=== PATIENT | female | born 1930 | race Caucasian/White ===

== ENCOUNTER 2016-06-21 00:13 | Inpatient (IN) ==
[2016-06-21] MEDS ORDERED: ONDANSETRON 4 MG/2 ML VIAL ONE (00:14)
[2016-06-21] MEDS ORDERED: ONDANSETRON 4 MG/2 ML VIAL IV ONE ×2 (00:22→00:25)
--- NOTE | 2016-06-21 00:55 | Emergency Department Note ---
General Adult HPI - General Chief complaint: Extremity Injury, Lower Stated complaint: hip pain Time Seen by Provider: 06/21/16 00:50 Source: patient Mode of arrival: EMS Limitations: no limitations - History of Present Illness HPI Narrative: 85-year-old female who fell off the toilet landed on her left hip. Complaining of pain to the area of injury involved. No head or neck painPain to the left hip she is on coumadin for a fib. Has myasthia gravis and cannot not use muscle relaxants. - Related Data Home Medications Medication Instructions Recorded Confirmed Estradiol [Estrace] 0.5 mg PO DAILY 11/08/14 05/01/16 Folic Acid/Mv,Fe,Min [One Daily 1 each PO DAILY 11/08/14 05/01/16 For Women Tablet] Omeprazole [Prilosec] 20 mg PO BID 11/08/14 05/01/16 azaTHIOprine [Imuran] 50 mg PO BID 11/08/14 05/01/16 Warfarin [Coumadin] 2 mg PO . TIN-LS-QP-SAT 03/15/16 05/01/16 Warfarin [Coumadin] 3 mg PO . M-W-F 03/15/16 05/01/16 Previous Rx's Medication Instructions Recorded Acetaminophen [Tylenol] 650 mg PO Q4-6HP PRN #0 tablet 12/11/15 Aspirin [Ecotrin] 325 mg PO DAILY tab.ec 12/11/15 Bisacodyl [Dulcolax] 10 mg OR Q2-3DAYS PRN #0 supp.rect 12/11/15 Docusate Sodium [Colace] 100 mg PO BID capsule 12/11/15 Furosemide [Lasix] 20 mg PO DAILY tablet 12/11/15 Gabapentin [Neurontin] 300 mg PO TID capsule 12/11/15 HYDROcodone/APAP 5/325MG [[place] 1 tab PO Q4HP PRN #30 tablet 12/11/15 5/325Mg] Heparin 5,000 unit SQ Q12 vial 12/11/15 Metoprolol Succinate [Toprol Xl] 25 mg PO BID tab.xl.24h 12/11/15 Potassium Chloride [Klor-Con] 40 meq PO DAILYP PRN #0 packet 12/11/15 Sennosides/Docusate Sodium [Senna 1 tab PO HS tablet 12/11/15 Plus Tablet] azaTHIOprine [Imuran] 150 mg PO DAILY@1200 tablet 12/11/15 predniSONE [Prednisone] 10 mg PO QAMCC tablet 12/11/15 traZODone HCL [Desyrel] 50 mg PO HSP PRN #0 tablet 12/11/15 Ciprofloxacin [Cipro] 500 mg PO BID #15 tablet 05/01/16 Amoxicillin/Potassium Clav 875 mg PO Q12H #20 tablet 05/28/16 [Augmentin] Ciprofloxacin HCl [Cipro] 500 mg PO BID #20 tablet 05/28/16 Allergies Allergy/AdvReac Type Severity Reaction Status Date / Time hydrochlorothiazide Allergy Mild Rash Verified 05/28/16 12:14 muscle relaxers Allergy Severe Weakness Uncoded 12/02/15 13:04 Review of Systems All systems ED: reviewed and negative except as stated. Musculoskeletal: Reports: as per HPI, other (left hp pain) Past Medical History - Past Medical History Medical history: Reports: atrial fibrillation, CHF, coronary artery disease, GI bleed, hypertension, other (myasthenia gravis, squamous cell carcinoma skin) Surgical history ED: Reports: appendectomy, cancer surgery, cataract, cholecystectomy, hysterectomy, knee replacement Family history: Reports: non-contributory - Social History smoking status: Never smoker Alcohol use: Reports: None Drug use: Reports: none Physical Exam - General Limitations: no limitations - Head Head exam: atraumatic - Eye Eye exam: Present: normal appearance - ENT ENT exam: normal exam - Neck Neck exam: Present: normal inspection, full ROM - Chest Chest inspection: Present: normal inspection - Respiratory Respiratory exam: Present: normal lung sounds bilaterally. Absent: respiratory distress - Cardiovascular Cardiovascular exam: Present: regular rate, normal rhythm - Abdominal Exam Abdominal exam: Present: soft. Absent: distention, tenderness - Expanded Lower Extremity Exam Hip/Pelvis exam: Present: tenderness, deformity Knee exam: Present: normal inspection Lower leg exam: Present: normal inspection Ankle exam: Present: normal inspection - Neurological Exam Neurological exam: Present: alert, oriented X3, CN II-XII intact - Psychiatric Psychiatric exam: Present: normal affect, normal mood Course Vital Signs Temperature 97.7 F 06/21/16 00:14 Pulse Rate 114 H 06/21/16 00:14 Respiratory Rate 19 06/21/16 00:14 Blood Pressure 127/70 06/21/16 00:14 Pulse Oximetry (%) 96 06/21/16 00:14 Temperature 97.7 F 06/21/16 00:14 Pulse Rate 114 H 06/21/16 00:14 Respiratory Rate 19 06/21/16 00:14 Blood Pressure 127/70 06/21/16 00:14 Pulse Oximetry (%) 96 06/21/16 00:14 Medical Decision Making - MDM Narrative Medical decision making narrative: x rays show left hip intratrocanter fracture. ua reveal a uti Hb 9.2 patient started on macrobid. inr 2.[address] Smith consulted pt to be admitted to hospitalist. Dr Loco to admitt. contacted. - Lab Data Result diagrams: 06/21/16 01:04 06/21/16 01:04 Lab Results 06/21/16 06/21/16 Range/Units 01:04 01:11 WBC 5.2 (4.5-11.0) K/mcL RBC 2.36 L (4.00-5.20) M/mcL Hgb 9.2 L (12.0-15.0) g/dL Hct 27.0 L (36.0-48.0) % MCV 114.3 H (80.0-100.0) fL MCH 39.1 H (26.0-34.0) pg MCHC 34.2 (31.0-36.0) g/dL RDW 22.8 H (11.5-14.5) % Plt Count 252 (140-440) K/mcL MPV 7.7 (7.4-10.4) fL Gran % 55.3 (38.0-78.0) % Lymph % (Auto) 38.1 (15.5-49.0) % Colbert % (Auto) 4.9 (1.0-9.0) % Eos % (Auto) 1.4 (0.0-7.0) % Baso % (Auto) 0.3 (0.0-2.0) % Gran # 2.8 (1.8-8.0) K/mcL Lymph # 2.0 (1.5-4.8) K/mcL Colbert # 0.3 (0.1-0.9) K/mcL Eos # 0.1 (0.0-0.7) K/mcL Baso # 0 (0.0-0.3) K/mcL Urine Color Yellow Urine Appearance Hazy Urine pH 5.0 (5.0-9.0) Ur Specific [place] 1.016 (1.000-1.035) Urine Protein Neg (NEG) mg/dL Urine Glucose (UA) Negative (NEG) mg/dL Urine Ketones Neg (NEG) mg/dL Urine Occult Blood 0.2 A (<0.03) mg/dL Urine Nitrate Neg (NEG) Urine Bilirubin Neg (NEG) mg/dL Urine Urobilinogen Neg (NEG) mg/dL Ur Leukocyte Esterase 250 A (NEG) /uL Urine RBC 7 H (0-1) /hpf Urine WBC 157 H (0-4) /hpf Ur Squamous Epith Cells < 1 (0-4) /hpf Ur Transition Epith Cell < 1 (0-2) /hpf Amorphous Crystals Few A (0) /hpf Urine Bacteria Few A (0) /hpf Hyaline Casts 4 H (0-2) /lpf Urine Mucus Few (0) /hpf Ur Culture Indicated? Yes Disposition Clinical Impression: UTI (urinary tract infection) Fracture of left hip Qualifiers: Encounter type: initial encounter Fracture type: closed Qualified Code(s): S72.002A - Fracture of unspecified part of neck of left femur, initial encounter for closed fracture Disposition: Xfer As Inpt ([facility]) Condition: Undetermined Referrals: Carlos Thompson MD [Primary Care Provider] -
[2016-06-21] MEDS: HYDROmorphone 2 MG/ML SYRINGE IV PRN ×8 (01:00→22:21)
[2016-06-21 01:37] LABS: Basophils # (Auto) 0 K/mcL (0.0-0.3); Basophils % (Auto) 0.3 % (0.0-2.0); Eosinophils # (Auto) 0.1 K/mcL (0.0-0.7); Eosinophils % (Auto) 1.4 % (0.0-7.0); Granulocytes % (Auto) 55.3 % (38.0-78.0); Lymphocytes % (Auto) 38.1 % (15.5-49.0); Mean Cell Volume 114.3 fL (80.0-100.0); Mean Corpuscular HGB Conc 34.2 g/dL (31.0-36.0); Mean Corpuscular Hemoglobin 39.1 pg (26.0-34.0); Monocytes # (Auto) 0.3 K/mcL (0.1-0.9); Monocytes % (Auto) 4.9 % (1.0-9.0); Platelet Count 252 K/mcL (140-440); RBC 2.36 M/mcL (4.00-5.20); Red Cell Distribution Width 22.8 % (11.5-14.5)
[2016-06-21] MEDS ORDERED: PROMETHAZINE 25 MG/ML VIAL IV ONE (01:37)
[2016-06-21 01:43] LABS: Appearance,Urine HAZY; Bacteria,Urine FEW /hpf (0); Bilirubin,Urine NEG (NEG); Color,Urine YELLOW; Glucose,Urine (UA) NEGATIVE (NEG); Leukocyte Esterase,Urine 250 /uL (NEG); Mucus,Urine FEW /hpf (0); Nitrate,Urine NEG (NEG); Protein,Urine NEG (NEG); Specific Gravity,Urine 1.016 (1.000-1.035); Urine Amorphous Crystals FEW /hpf (0); Urine Blood 0.2 mg/dL (<0.03); Urine Hyaline Cast 4 /lpf (0-2); Urine RBC 7 /hpf (0-1); Urine Squamous Epithelial Cell < 1 /hpf (0-4); Urine Transitional Epi Cells < 1 /hpf (0-2); Urine WBC 157 /hpf (0-4); Urobilinogen,Urine NEG (NEG)
[2016-06-21 01:58] LABS: ALT/SGPT 34 U/l (0-40); Albumin 3.9 gm/dL (3.2-5.2); Albumin/Globulin Ratio 1.8 (1.0-2.3); Alkaline Phosphatase 61 U/L (39-117); Blood Urea Nitrogen 27 mg/dl (8-23)
[2016-06-21] MEDS ORDERED: NITROFURANTOIN SR 100 MG CAPSULE PO ONE (02:12)
[2016-06-21] MEDS ORDERED: PHYTONADIONE 5 MG TABLET PO ONE ×2 (02:12→11:20)
[2016-06-21] MEDS ORDERED: HYDROmorphone 2 MG/ML SYRINGE IV PRN ×2 (02:22→22:52)
[2016-06-21] MEDS ORDERED: HYDROmorphone 2 MG/ML SYRINGE ONE ×7 (02:56→23:59)
[2016-06-21] MEDS ORDERED: cefTRIAXone 1 GM in DEXTROSE 5% IN WATER 50 ML IV SCH (06:00)
[2016-06-21] MEDS ORDERED: ONDANSETRON 4 MG/2 ML VIAL IV PRN (06:07)
[2016-06-21] MEDS ORDERED: IPRATROPIUM/ALBUTEROL 3 ML AMPUL.NEB NEB PRN (06:07)
[2016-06-21] MEDS ORDERED: PROMETHAZINE 25 MG/ML VIAL IV PRN (06:07)
[2016-06-21] MEDS ORDERED: NALOXONE HCL 0.4 MG/ML VIAL IV PRN (06:07)
[2016-06-21] MEDS ORDERED: FLEETS ADULT ENEMA PR PRN (06:07)
[2016-06-21] MEDS ORDERED: cefTRIAXone 1 GM VIAL ONE (06:27)
--- NOTE | 2016-06-21 06:52 | Internal Med History&Physical ---
Medical - H&P: HPI Patient information: Note initiated : 06/21/16 at 6:48 am Service Date, if different from initiated Date: [] Patient: Juan Diego Luna 85 y/o F admitted on 06/21/16 for hip pain. Chief Complaint: [] History of present illness: Ms. Luna is a 85 year old female with h/o afib, myasthenia gravis, on chr medications, presented to the ER with a fall The patient was on the toilet seat, when while getting up apparently her leg slipped/ or gave away and she fell down hurting her hip. The patient has been having pain in the left hip region, severe, worse with activity, better with rest. She was seen in the ER and an X ray showed a fracture of the left femur neck. She was admitted to the hospital for further management. Dr Robles was called in by the ER. The patient denies any trauma to the head, LOC, palpitations, presyncope or dizziness. The patient has h/o CHF with preserved LVEF, Myasthenia gravis, Afib on coumadin , ? CAD, She denies h/o MS, CVA, TIA, CKD or DM. Patient has poor ambulation but her MET score is around 2-3, she is able to take care of herself. She denies any active chest pain, shortness of breat. The patient notes she has chr intermittent UTi, but was not very clear if she was having these symptoms at this time, her UA done in the ER does howevere suggest an UTI. - Constitutional Constitutional: Absent: fever(s), headache(s) - EENT Eyes: Absent: blurry vision, change in vision Nose, mouth and throat: Absent: abnormal hearing, bleeding gums - Cardiovascular Cardiovascular: Absent: chest pain, claudication, orthopnea, palpatations, syncope - Respiratory Respiratory: Absent: cough, dyspnea on exertion, wheezing, chest congestion, excessive phlegm production - Gastrointestinal Gastrointestinal: Absent: abdominal pain, nausea, vomiting - Genitourinary Genitourinary: Absent: hematuria, urinary frequency, urinary hesitancy - Musculoskeletal Musculoskeletal: Present: limited range of motion (left hip.) - Integumentary Integumentary: Absent: wounds, jaundice - Neurological Neurological: Absent: headache(s), syncope, vertigo - Psychiatric Psychiatric: Absent: anxiety, confusion - Endocrine Endocrine: Absent: polydipsia, polyphagia, polyuria - Hematologic/Lymphatic Hematologic/Lymphatic: Present: easy bleeding, easy bruising - Allergic/Immunologic Allergic/Immunologic: Absent: tongue swelling, wheezing, lip swelling Medical - H&P: PMH Medical history: Medical History Fracture of left hip (Acute) UTI (urinary tract infection) (Acute) Abnormal bruising (Acute) Acute bronchitis (Acute) Acute diarrhea (Acute) Ankle sprain and strain (Acute) Atypical chest pain (Acute) Chest pain (Acute) Dehydration (Acute) Dysuria-frequency syndrome (Acute) Fracture of rib (Acute) Heart failure with acute decompensation, type unknown (Acute) Intractable pain (Acute) Lower GI bleeding (Acute) Nausea (Acute) Right femoral fracture (Acute) Right knee sprain (Acute) Urinary tract infection (Acute) Urinary tract infection (Acute) Surgical history: h/op TKA< cataract sx, appendectomy, chloecystectomy, Medical - H&P: Meds Home Medications Medication Instructions Recorded Confirmed Type Estradiol [Estrace] 0.5 mg PO DAILY 11/08/14 05/01/16 History Folic Acid/Mv,Fe,Min [One Daily 1 each PO DAILY 11/08/14 05/01/16 History For Women Tablet] Omeprazole [Prilosec] 20 mg PO BID 11/08/14 05/01/16 History azaTHIOprine [Imuran] 50 mg PO BID 11/08/14 05/01/16 History Warfarin [Coumadin] 2 mg PO . TFG-SL-AA-SAT 03/15/16 05/01/16 History Warfarin [Coumadin] 3 mg PO . -W-03/15/16 05/01/16 History Allergies Allergy/AdvReac Type Severity Reaction Status Date / Time hydrochlorothiazide Allergy Mild Rash Verified 05/28/16 12:14 muscle relaxers Allergy Severe Weakness Uncoded 12/02/15 13:04 Medical - H&P: Exam - Constitutional Vitals: Temp Pulse Resp BP Pulse Ox 97.3 F L 87 18 112/64 95 06/21/16 02:54 06/21/16 02:54 06/21/16 02:54 06/21/16 02:54 06/21/16 02:54 General appearance: cooperative, mild distress - Head Head exam: Present: atraumatic, normal inspection, normocephalic - Eye Eye exam: Absent: periorbital swelling, periorbital tenderness, scleral icterus - ENT ENT exam: Present: mucous membranes dry - Neck Neck exam: Present: normal inspection - Respiratory Respiratory exam: Present: normal respiratory exam. Absent: accessory muscle use, respiratory distress, rhonchi, stridor, wheezes - Cardiovascular Cardiovascular exam: Present: normal rate and rhythm, +S1, +S2, systolic murmur (aortic region) - GI/Abdominal GI/Abdominal exam: Present: normal bowel sounds, soft. Absent: rebound, tenderness - Extremities Exam Extremities exam: Present: Foot pink and warm, neurovascular intact. Absent: pedal edema - Neurological Exam Neurological exam: Present: alert, CN II-XII intact, oriented X3. Absent: motor sensory deficit - Psychiatric Psychiatric exam: Absent: agitated, anxious - Skin Skin exam: Present: warm. Absent: rash, urticaria Medical - H&P: Reslt - Labs CBC & Chem 7: 06/21/16 01:04 06/21/16 01:04 - EKG Data -: EKG Reviewed by Myself EKG shows normal: sinus rhythm (lad, lafb.) - EKG Data When compared to previous EKG: there is no significant change - Impressions Echo done in 2016 shows mild , Moderate LVH with normal LVEF, Mild LA Chest X ray reviewed, no infiltrate. Medical - H&P: A/P (1) Pre-op evaluation Current visit: Yes Status: Acute (2) Hypertension Current visit: Yes Status: Acute (3) Fracture of left hip Current visit: Yes Status: Acute (4) UTI (urinary tract infection) Current visit: Yes Status: Acute - Narrative A/P Narrative: The patient presents with left femur fracture after a mechnical fall- Fracture management as per Ortho. UTI- IV rocephin for now, follow urine culture Pre Op eval- RCRI score of 1, and poor functional status, makes her a moderate risk individual, she is already on beta blockers. Will resume Home meds once reconciled Myasthenia gravis- Resume home dose of steroids, and azathioprine, once confirmed, patient should avoid NM blocking agents in the OR Afib- On coumadin, metoprolol, INR therapeutic, patient received DVT - SCD Diet NPO Code Full Medical - H&P: Qual - Stroke Symptom Onset Unknown: No - VTE Deep Vein Thrombosis/Pulmonary Embolism Present on Admission: No
--- NOTE | 2016-06-21 07:45 | XRay Report ---
HISTORY: Reason for Exam:injury/pain after a fall FINDINGS: There is an acute transverse fracture left femoral neck. The shaft is displaced superiorly. The head is normally aligned with the acetabulum. There is underlying osteoporosis. Disc space narrowing and spur formation are present at L4-5 and L5-S1. IMPRESSION: Fractured left femoral neck Interpreted and Authenticated by: Hemant Clay 06/21/16
--- NOTE | 2016-06-21 07:47 | XRay Report ---
HISTORY: Reason for Exam: Preop to repair a broken hip FINDINGS: A band of discoid atelectasis is present laterally at the left lung base. The lungs are otherwise clear. The heart size and pulmonary vasculature are normal. The mediastinum and burt are normal. There is a dorsal column electrical stimulator wire in the midthoracic spinal canal. The discoid atelectasis is new since 05/28/16. IMPRESSION: Discoid atelectasis in the left lower lobe Interpreted and Authenticated by: Hemant Clay 06/21/16
[2016-06-21] MEDS ORDERED: NITROFURANTOIN SR 100 MG CAPSULE PO SCH (09:00)
[2016-06-21] MEDS ORDERED: NITROGLYCERIN 0.4 MG TAB.SUBL SL PRN (14:44)
[2016-06-21] MEDS ORDERED: NITROGLYCERIN 0.4 MG TAB.SUBL SL ONE (14:46)
[2016-06-21] MEDS: 0.9 % SODIUM CHLORIDE 10 ML SYRINGE IV SCH ×2 (14:59→22:09)
--- NOTE | 2016-06-21 16:24 | Event Note ---
Was notified of pt having jaw pain and chest pain, given her age and planed sx in AM, ordered ekg, troponin and echo pt notes she still has right jaw pain, her chest pain on the left side was fleeting in nature and she has left back pain. Will give her metoprolol and isosorbide as her home medication. Echo result pending first set of troponin is neg, I doubt if this is cardiac chest pain. Most likely non cardiac in origin, as the back region is tender to palpation. jaw pain seems unrelated to chest.
[2016-06-21] MEDS: predniSONE 10 MG TABLET PO SCH (16:55)
[2016-06-21] MEDS: ISOSORBIDE MONONITRATE 30 MG TAB.XL.24H PO SCH (16:56)
[2016-06-21] MEDS: PANTOPRAZOLE 40 MG TABLET PO SCH (16:56)
[2016-06-21] MEDS: METOPROLOL TARTRATE 25 MG TABLET PO SCH (16:56)
[2016-06-21] MEDS ORDERED: POTASSIUM CHLORIDE 20 MEQ PACKET PO PRN (16:56)
[2016-06-21] MEDS ORDERED: SENNOSIDES 1 TABLET PO SCH (21:00)
[2016-06-21] MEDS ORDERED: traZODone HCL 50 MG TABLET PO SCH (21:00)
[2016-06-21] MEDS ORDERED: SENNOSIDES/DOCUSATE SODIUM 1 TAB TABLET PO SCH (21:00)
[2016-06-21] MEDS: GABAPENTIN 300 MG CAPSULE PO SCH (21:19)
[2016-06-21] MEDS: SUCRALFATE 1 GM TABLET PO SCH (21:19)
[2016-06-21] MEDS: azaTHIOprine 50 MG TABLET PO SCH (22:46)
[2016-06-22] MEDS ORDERED: HYDROmorphone 2 MG/ML SYRINGE ONE ×2 (03:08→06:18)
[2016-06-22] MEDS: METOPROLOL TARTRATE 25 MG TABLET PO SCH ×3 (03:12→21:07)
[2016-06-22] MEDS: 0.9 % SODIUM CHLORIDE 10 ML SYRINGE IV SCH ×3 (06:11→22:38)
[2016-06-22] MEDS: SUCRALFATE 1 GM TABLET PO SCH ×4 (07:11→21:08)
[2016-06-22] MEDS ORDERED: ceFAZolin 1 GM VIAL IV ONE (08:18)
[2016-06-22] MEDS ORDERED: ceFAZolin 1 GM VIAL ONE (08:21)
[2016-06-22] MEDS ORDERED: fentaNYL 100 MCG/2 ML VIAL IV ONE (08:30)
[2016-06-22] MEDS ORDERED: LIDOCAINE HCL/PF 100 MG/5 ML SYRINGE IV ONE (08:30)
[2016-06-22] MEDS ORDERED: ONDANSETRON 4 MG/2 ML VIAL IV ONE (08:30)
[2016-06-22] MEDS ORDERED: GLYCOPYRROLATE 0.2 MG/ML VIAL IV ONE (08:30)
[2016-06-22] MEDS ORDERED: MIDAZOLAM 5 MG/5 ML VIAL IV ONE (08:30)
[2016-06-22] MEDS ORDERED: PROPOFOL 200 MG/20 ML VIAL IV ONE (08:30)
[2016-06-22] MEDS ORDERED: TRANEXAMIC ACID 1,000 MG/10 ML VIAL IV ONE ×2 (08:30→09:52)
[2016-06-22] MEDS ORDERED: KETAMINE 100 MG/ML ML IV ONE (08:30)
[2016-06-22] MEDS ORDERED: amLODIPine 10 MG TABLET PO SCH (09:00)
[2016-06-22] MEDS ORDERED: cefTRIAXone 1 GM in DEXTROSE 5% IN WATER 50 ML IV SCH (09:00)
[2016-06-22] MEDS ORDERED: ISOSORBIDE MONONITRATE 30 MG TAB.XL.24H PO SCH (09:00)
[2016-06-22] MEDS ORDERED: FOLIC ACID 1 MG TABLET PO SCH (09:00)
[2016-06-22] MEDS ORDERED: FUROSEMIDE 20 MG TABLET PO SCH (09:00)
--- NOTE | 2016-06-22 09:24 | XRay Report ---
HISTORY: Reason for Exam:shortness of breath FINDINGS: There are bands of discoid atelectasis in both lung bases. The pain in the right lower lobe is new since prior study done earlier in the same date. The left lower lobe atelectasis has remained stable. Lung volumes are smaller now than they were previously. The heart size and pulmonary vasculature are normal. There is no pleural effusion. IMPRESSION: Bands of discoid atelectasis in both lower lobes Interpreted and Authenticated by: Hemant Clay 06/22/16
[2016-06-22] MEDS ORDERED: HYDROmorphone 2 MG/ML SYRINGE IV PRN (09:46)
[2016-06-22] MEDS ORDERED: IPRATROPIUM/ALBUTEROL 3 ML AMPUL.NEB NEB PRN ×2 (09:46→14:50)
[2016-06-22] MEDS ORDERED: MEPERIDINE 25 MG/ML SYRINGE IV PRN (09:46)
[2016-06-22] MEDS ORDERED: PROMETHAZINE 25 MG/ML VIAL IV PRN ×2 (09:46→14:50)
[2016-06-22] MEDS ORDERED: BENZOCAINE/MENTHOL 1 LOZENGE PO PRN ×3 (09:46→14:50)
[2016-06-22] MEDS ORDERED: fentaNYL 100 MCG/2 ML VIAL IV PRN (09:46)
[2016-06-22] MEDS ORDERED: LABETALOL 5 MG/ML ML IV PRN (09:46)
--- NOTE | 2016-06-22 09:51 | Brief Operative Note ---
Date of procedure: 06/22/16 Pre-op diagnosis: Left hip femoral neck fracture Post-op diagnosis: same Procedure: Open treatment left femoral neck fracture with prosthetic hemiarthroplasty Grafts/Implants: Yes (Depuy 4 cemented summit, 44 unipolar head, 0 neck) Anesthesia: GETA Findings: above Complications: none Surgeon: Jacques Johnson Stratigrapher: Anibal Pardo Estimated blood loss (cc): 150 Specimens Removed/Pathology: none sent Condition: stable Disposition: PACU
[2016-06-22] MEDS ORDERED: KETOROLAC 15 MG/ML VIAL IV PRN ×2 (09:52→14:50)
[2016-06-22] MEDS ORDERED: MAGNESIUM HYDROXIDE 30 ML ORAL.SUSP PO PRN ×2 (09:52→14:50)
[2016-06-22] MEDS ORDERED: FLEETS ADULT ENEMA PR PRN ×3 (09:52→14:50)
[2016-06-22] MEDS ORDERED: oxyCODONE/APAP 5/325MG TABLET PO PRN (09:52)
[2016-06-22] MEDS ORDERED: BISACODYL 10 MG SUPP.RECT PR PRN ×2 (09:52→14:50)
[2016-06-22] MEDS ORDERED: POLYETHYLENE GLYCOL 3350 17 GM PACKET PO PRN ×2 (09:52→14:50)
[2016-06-22] MEDS ORDERED: ceFAZolin 1 GM VIAL IV SCH (10:00)
[2016-06-22] MEDS ORDERED: LACTATED RINGERS 1,000 ML IV SCH (10:00)
[2016-06-22] MEDS ORDERED: ACETAMINOPHEN 1,000 MG/100 ML BOTTLE IV SCH (10:00)
[2016-06-22] MEDS ORDERED: 0.9 % SODIUM CHLORIDE 1,000 ML IV SCH (10:00)
--- NOTE | 2016-06-22 11:56 | Echocardiogram Report ---
ECHOCARDIOGRAM: 2-D and M-mode echocardiography with cardiac Doppler and color flow imaging were performed with a [employer] A[employer]io MX. INDICATION: Chest pain. The exam was conducted in the supine only positioning (hip fracture). Overall size of the RA, RV, LV, and aortic root appeared normal. LV wall thickness appeared mildly increased. Systolic performance appeared vigorous. Estimated ejection fraction is 70%. The LA appeared borderline enlarged. The aortic valve appeared moderately to heavily calcified. Valve opening appeared mildly reduced. Maximal instantaneous aortic outflow systolic gradient as obtained from the apex and as calculated by the modified Bernoulli equation was 21 mmHg, usually corresponding to very mild aortic stenosis. No more than trivial aortic regurgitation was noted. The mitral and tricuspid valves appear unremarkable. Heavy mitral annular calcification was present. Doppler interrogation of LV inflow disclosed prolonged early diastolic deceleration time and \\"A\\" wave dominance indicating delayed LV relaxation. No more than trivial mitral regurgitation was demonstrated. Pulmonary venous interrogation disclosed slight \\"S\\" wave dominance. The pulmonic valve was not visualized. Pulmonary artery acceleration time appeared normal. There was no evidence for pulmonic stenosis or pulmonic regurgitation. There was no evidence for tricuspid regurgitation. No intracardiac shunting was appreciated. There was no evidence of pericardial effusion. The IVC was of normal diameter and showed normal respiratory variation. Hepatic venous interrogation disclosed normal \\"S\\" wave dominance. Sinus rhythm, rate 88, was present. CONCLUSIONS: Technically limited study due to supine only positioning. Aortic stenosis, probably mild. Mild concentric LVH with vigorous systolic performance. Heavy mitral annular calcification. Borderline LA enlargement. Since previous study 12/08/15, there are probably no major changes. (See accompanying M-mode and Doppler reports for quantitation.) ECHOCARDIOGRAPHY M-MODE CALCULATIONS: HT: 66 inches WT: 135 BSA: 1.69 m2 NORMALS AORTA: AORTIC ROOT 3.3 2.0-3.7 cm LEFT ATRIUM 2.9 1.9-4.0 cm MITRAL VALVE: EXCURSION 1.7 1.9-2.7 cm EPSS 0.3 <0.5 cm LT VENTRICLE: LVID (ED) 3.8 3.5-5.7 cm LVID (ES) 2.4 SEPTAL THICKNESS 0.8 0.6-1.1 cm SEPTAL EXCURSION 0.7 0.3-0.8 cm LVPW THICKNESS 0.8 0.6-1.1 cm LVPW EXCURSION 0.7 0.9-1.4 cm MINOR AXIS FS 37 25%-40% RT VENTRICLE: RVID (ED) -- 0.9-2.6 cm(up to 3cm if LLD) QUALITATIVE DOPPLER FLOW STUDIES MITRAL VALVE MR, probably trivial AORTIC VALVE AR, probably trivial; , probably mild TRICUSPID VALVE PULMONIC VALVE IA, probably mild (1+) QUANTITATIVE DOPPLER FLOW STUDIES SAMPLE SITES VELOCITIES PEAK PRESSURE VALVE AREA and/or VALVE WINDOW (PEAK,M/SEC) DROP (GRADIENT) PRESSURE HALF-TIME MV (Diastole) 1.1 (E) 1.5 (A) MV (Systole) 2.5 AO (Diastole) 2.0 AO (Systole) 2.0 TV (Systole) 2.3 21 mmHg PV (Systole) 0.8 PV (Diastole) -- LWG:mishel Job ID: [id number] Doc ID: [id number] Milan Joseph MD
[2016-06-22] MEDS: predniSONE 10 MG TABLET PO SCH (13:16)
[2016-06-22] MEDS: PANTOPRAZOLE 40 MG TABLET PO SCH ×2 (13:16→17:16)
[2016-06-22] MEDS: ISOSORBIDE MONONITRATE 30 MG TAB.XL.24H PO SCH (13:22)
[2016-06-22] MEDS: azaTHIOprine 50 MG TABLET PO SCH ×4 (13:22→21:07)
[2016-06-22] MEDS: GABAPENTIN 300 MG CAPSULE PO SCH ×3 (13:23→21:10)
--- NOTE | 2016-06-22 13:39 | XRay Report ---
HISTORY: Reason for Exam:post op repair of a hip fracture FINDINGS: There is a well-positioned left unipolar hip prosthesis. No new fracture has developed. Femoral head and neck of been resected. IMPRESSION: Well-positioned left hip prosthesis Interpreted and Authenticated by: Hemant Clay 06/22/16
--- NOTE | 2016-06-22 13:42 | XRay Report ---
HISTORY: Reason for Exam: Fell and bruising in the back of the left shoulder FINDINGS: No fracture or dislocation are present. There is mild arthritis at the acromioclavicular joint and there is a small spur along the inferior medial border of the humeral head. There is a linear dystrophic soft tissue calcification lateral to the femoral neck, below the tuberosities. No donor site is present. IMPRESSION: Mild arthritis and no fracture Interpreted and Authenticated by: Hemant Clay 06/22/16
--- NOTE | 2016-06-22 13:48 | Internal Med Progress Note ---
Medical - PN: Subj Patient information: Note initiated : 06/22/16 at 1:45 pm Service Date, if different from initiated Date: [] Patient: Juan Diego Luna 85 y/o F admitted on 06/21/16 for Hemiarthroplasty Hip. Chief Complaint: [] Interval history: The patient seen examined, Ovenight no changes The patient had left hip arthroplasty by Dr Johnson today, seems tolerated the procedure well. THe patient will be monitored in the ICU on telemetery post op given her increased oxygen requirements. The patient endorses pain in the hip region, but otherwise no other complaints. I reviewed her X ray chest, Echo and trop levels. all are negative. Her Urine culture is positive for gram neg rods, sensitivities/ isolation pending. Pertinent ROS: Denies headache, dizziness Denies chest pain, palpitations Denies cough or shortness of breath Denies abdominal pain, nausea or vomiting. pain in the hip present. - Constitutional Vitals: Vital Signs Temp Pulse Resp BP Pulse Ox 98.9 F 96 H 19 132/64 91 06/22/16 12:00 06/22/16 12:00 06/22/16 12:00 06/22/16 12:00 06/22/16 12:00 Period Temp Pulse Resp BP Sys/Pascal Pulse Ox Last 24 Hr 97.5 F-98.9 F 72-99 14-21 99-142/58-71 90-97 Intake and Output 06/21/16 06/22/16 06/22/16 21:59 05:59 13:59 Intake Total 0 / 0 1350 / 1350 Output Total 775 / 775 900 / 900 925 / 925 Balance -775 / -775 -900 / -900 425 / 425 Weight 134 lb 134 lb Patient Weight 06/23/16 05:59 Weight 134 lb Intake & Output: Intake & Output 06/21/16 06/22/16 06/22/16 21:59 05:59 13:59 Intake Total 0 / 0 1350 / 1350 Output Total 775 / 775 900 / 900 925 / 925 Balance -775 / -775 -900 / -900 425 / 425 Weight 134 lb 134 lb Intake: IV 100 / 100 Oral 0 / 0 IV - Manual Only 1250 / 1250 Output: Urine Catheter Amount 775 / 775 900 / 900 300 / 300 Void Amount 575 / 575 Uretheral (Hinton) 575 / 575 Estimated Blood Loss 50 / 50 Other: Percent of Meal Consumed npo Exam: Constitutional; Afebrile, cooperative, drowsy, not in distress. Eyes- No icterus, No periorbital swelling Ears- Ext ear normal, hearing normal to conversation. Neck- Midline trachea, supple Respiratory system: Air Entry equal on both sides, mild basilar crackles. CVS- Rate rhythm regular, S1,S2 heard, no gallop, no rub. 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 Medical - PN: Obj Da - Labs CBC & Chem 7: 06/21/16 01:04 06/21/16 01:04 Labs: Abnormal Lab Results 06/22/16 06/21/16 06:18 08:26 PT 20.3 H 25.9 H INR 1.7 H 2.3 H Meds: Medications Albuterol/Ipratropium (Duoneb) 3 ml NEB Q6HRT PRN PRN Reason: Shortness Of Breath Or Wheezing Amlodipine Besylate (Norvasc) 10 mg PO DAILY [facility] Last Admin: 06/22/16 13:23 Dose: Not Given Azathioprine (Imuran) 50 mg PO BID [facility] Last Admin: 06/22/16 13:22 Dose: Not Given Azathioprine (Imuran) 150 mg PO DAILY@1200 [facility] Bisacodyl (Dulcolax) 10 mg SD Q2-3DAYS PRN PRN Reason: Constipation Cefazolin Sodium (Ancef) 2 gm IV Q8H [facility] Stop: 06/22/16 18:01 Last Admin: 06/22/16 13:23 Dose: Not Given Docusate Sodium (Colace) 100 mg PO BID [facility] Folic Acid (Folic Acid) 1 mg PO DAILY [facility] Last Admin: 06/22/16 13:22 Dose: Not Given Furosemide (Lasix) 20 mg PO DAILY [facility] Last Admin: 06/22/16 13:22 Dose: Not Given Gabapentin (Neurontin) 300 mg PO TID [facility] Last Admin: 06/22/16 13:23 Dose: Not Given Hydromorphone HCl (Dilaudid) 0.5 mg IV Q1HP PRN PRN Reason: Pain Ceftriaxone Sodium 1 gm/ (Dextrose) 50 mls @ 100 mls/hr IV DAILY [facility] Stop: 06/27/16 09:29 Last Admin: 06/22/16 13:21 Dose: 100 mls/hr Acetaminophen (Ofirmev) 1,000 mg in 100 mls @ 200 mls/hr IV Q6H [facility] Stop: 06/23/16 04:29 Last Infusion: 06/22/16 11:20 Dose: Infused Isosorbide Mononitrate (Imdur) 30 mg PO DAILY [facility] Last Admin: 06/22/16 13:22 Dose: Not Given Ketorolac Tromethamine (Toradol) 15 mg IV Q6HP PRN PRN Reason: Pain Stop: 06/24/16 10:03 Magnesium Hydroxide (Milk Of Magnesia) 30 ml PO BIDP PRN PRN Reason: Constipation Metoprolol Tartrate (Lopressor) 25 mg PO BID [facility] Last Admin: 06/22/16 13:22 Dose: Not Given Morphine Sulfate (Morphine) 0 mg IV Q1HP PRN PRN Reason: Pain Naloxone HCl (Narcan) 0.1 mg IV Q2MIN PRN PRN Reason: Opiate Reversal Nitroglycerin (Nitrostat) 0.4 mg SL Q5M PRN PRN Reason: Chest Pain Ondansetron HCl (Zofran) 4 mg IV Q6HP PRN PRN Reason: Nausea And Vomiting Oxycodone/Acetaminophen (Percocet 5-325 Mg) 0 tab PO Q4HP PRN PRN Reason: Pain Pantoprazole Sodium (Protonix) 40 mg PO BIDAC [facility] Last Admin: 06/22/16 13:16 Dose: Not Given Polyethylene Glycol (Miralax) 17 gm PO DAILYP PRN PRN Reason: Constipation Potassium Chloride (Klor-Con) 40 meq PO DAILYP PRN PRN Reason: K+ < 3.5 [facility]) [facility] Last Admin: 06/22/16 13:16 Dose: Not Given Promethazine HCl (Phenergan) 12.5 mg IV Q6HP PRN PRN Reason: Nausea And Vomiting Last Admin: 06/22/16 06:45 Dose: 12.5 mg Senna (Senokot) 2 tab PO [facility] Last Admin: 06/21/16 21:19 Dose: 2 tab Senna (Senokot) 2 tab PO HS [facility] Senna/Docusate Sodium (Senna Plus Tablet) 1 tab PO [facility] Last Admin: 06/21/16 21:19 Dose: 1 tab Sodium Biphosphate/Sodium Phosphate (Fleets Adult) 1 dose SD Q3-4DAYS PRN PRN Reason: Constipation Sodium Biphosphate/Sodium Phosphate (Fleets Adult) 1 dose SD Q3-4DAYS PRN PRN Reason: Constipation Sodium Chloride (Saline Flush) 10 ml IV Q8 [facility] Last Admin: 06/22/16 06:11 Dose: 10 ml Sucralfate (Carafate) 1 gm PO 1HRACHS [facility] Last Admin: 06/22/16 13:24 Dose: Not Given Throat Lozenges (Cepacol) 1 lozenge PO PRN PRN PRN Reason: Sore Throat Trazodone HCl (Desyrel) 50 mg PO [facility] Last Admin: 06/21/16 21:21 Dose: Not Given Warfarin Sodium (Coumadin Per Pharmacy) 1 order PO DAILY@1400 [facility] Medical - PN: A/P - Time Spent With Patient Total time spent is greater than 50% in coordination of care (as documented) at patient's floor/unit and/or counseling patient: (1) Hypertension Status: Acute Current Visit: Yes (2) Fracture of left hip Status: Acute Current Visit: Yes (3) UTI (urinary tract infection) Status: Acute Current Visit: Yes (4) Hypoxia Status: Acute Current Visit: Yes (5) Atelectasis Status: Acute Current Visit: Yes - Narrative A/P Narrative: UTI- continue rocephin, await sensitivites HIp fractures- s/p repair, resume anticoagulation once ok by ortho, PT as per ortho. HTN bp stable, resume home meds Myasthenia gravis, on steroids continue same. Hypoxia- Due to atelectasis, Incentive spirometery for now, consider lasix, hold fluids for now, resume PO diet. Medical - PN: Qual - Stroke Symptom Onset Unknown: No - VTE Deep Vein Thrombosis/Pulmonary Embolism Present on Admission: No
[2016-06-22] MEDS ORDERED: WARFARIN 3 MG TABLET PO ONE (14:00)
[2016-06-22] MEDS ORDERED: NITROGLYCERIN 0.4 MG TAB.SUBL SL PRN (14:50)
[2016-06-22] MEDS ORDERED: POTASSIUM CHLORIDE 20 MEQ PACKET PO PRN (14:50)
[2016-06-22] MEDS ORDERED: ONDANSETRON 4 MG/2 ML VIAL IV PRN (14:50)
[2016-06-22] MEDS ORDERED: NALOXONE HCL 0.4 MG/ML VIAL IV PRN (14:50)
[2016-06-22] MEDS: ACETAMINOPHEN 1,000 MG/100 ML BOTTLE IV SCH ×2 (15:17→22:38)
[2016-06-22] MEDS: oxyCODONE/APAP 5/325MG TABLET PO PRN (15:25)
[2016-06-22] MEDS: ceFAZolin 1 GM VIAL IV SCH ×2 (16:51→23:21)
[2016-06-22] MEDS: HYDROmorphone 2 MG/ML SYRINGE IV PRN (19:31)
[2016-06-22] MEDS ORDERED: SENNOSIDES 1 TABLET PO SCH ×3 (21:00)
[2016-06-22] MEDS ORDERED: DOCUSATE SODIUM 100 MG CAPSULE PO SCH (21:00)
[2016-06-22] MEDS ORDERED: traZODone HCL 50 MG TABLET PO SCH (21:00)
[2016-06-22] MEDS ORDERED: SENNOSIDES/DOCUSATE SODIUM 1 TAB TABLET PO SCH (21:00)
[2016-06-22] MEDS: DOCUSATE SODIUM 100 MG CAPSULE PO SCH (21:08)
[2016-06-23] MEDS: HYDROmorphone 2 MG/ML SYRINGE IV PRN ×2 (02:48→07:52)
[2016-06-23] MEDS: ACETAMINOPHEN 1,000 MG/100 ML BOTTLE IV SCH (04:32)
[2016-06-23] MEDS: 0.9 % SODIUM CHLORIDE 10 ML SYRINGE IV SCH ×4 (04:56→22:06)
[2016-06-23 06:51] LABS: Basophils # (Auto) 0 K/mcL (0.0-0.3); Basophils % (Auto) 0.4 % (0.0-2.0); Eosinophils # (Auto) 0.1 K/mcL (0.0-0.7); Eosinophils % (Auto) 3.4 % (0.0-7.0); Granulocytes % (Auto) 70.9 % (38.0-78.0); Lymphocytes # (Auto) 0.8 K/mcL (1.5-4.8); Lymphocytes % (Auto) 19.2 % (15.5-49.0); Mean Cell Volume 117.7 fL (80.0-100.0); Mean Corpuscular HGB Conc 33.2 g/dL (31.0-36.0); Mean Corpuscular Hemoglobin 39.1 pg (26.0-34.0); Monocytes # (Auto) 0.3 K/mcL (0.1-0.9); Monocytes % (Auto) 6.1 % (1.0-9.0); Platelet Count 234 K/mcL (140-440); RBC 2.35 M/mcL (4.00-5.20); Red Cell Distribution Width 24.5 % (11.5-14.5)
[2016-06-23 07:09] LABS: ALT/SGPT 23 U/l (0-40); Albumin 3.1 gm/dL (3.2-5.2); Albumin/Globulin Ratio 1.5 (1.0-2.3); Alkaline Phosphatase 51 U/L (39-117); Bilirubin,Direct < 0.2 mg/dL (0.0-0.3); Blood Urea Nitrogen 15 mg/dl (8-23); Gamma Glutamyl Transpeptidase 21 U/L (5-36); Magnesium 2.1 mg/dL (1.6-2.5); Phosphorous 2.7 mg/dL (2.7-4.5); Uric Acid 7.2 mg/dL (2.5-8.0)
[2016-06-23] MEDS: SUCRALFATE 1 GM TABLET PO SCH ×4 (07:35→21:07)
[2016-06-23] MEDS: PANTOPRAZOLE 40 MG TABLET PO SCH ×2 (07:36→17:55)
[2016-06-23] MEDS ORDERED: predniSONE 10 MG TABLET PO SCH (08:00)
[2016-06-23] MEDS: azaTHIOprine 50 MG TABLET PO SCH ×6 (08:46→22:05)
[2016-06-23] MEDS: METOPROLOL TARTRATE 25 MG TABLET PO SCH ×2 (08:52→22:03)
[2016-06-23] MEDS: DOCUSATE SODIUM 100 MG CAPSULE PO SCH ×2 (08:52→22:02)
[2016-06-23] MEDS: GABAPENTIN 300 MG CAPSULE PO SCH ×4 (08:54→22:02)
[2016-06-23] MEDS ORDERED: FOLIC ACID 1 MG TABLET PO SCH (09:00)
[2016-06-23] MEDS ORDERED: FUROSEMIDE 20 MG TABLET PO SCH (09:00)
[2016-06-23] MEDS ORDERED: amLODIPine 10 MG TABLET PO SCH (09:00)
[2016-06-23] MEDS ORDERED: ISOSORBIDE MONONITRATE 30 MG TAB.XL.24H PO SCH (09:00)
[2016-06-23] MEDS ORDERED: cefTRIAXone 1 GM in DEXTROSE 5% IN WATER 50 ML IV SCH (09:00)
--- NOTE | 2016-06-23 10:17 | Internal Med Progress Note ---
Medical - PN: Subj Patient information: Note initiated : 06/23/16 at 10:14 am Service Date, if different from initiated Date: [] Patient: Juan Diego Luna 85 y/o F admitted on 06/21/16 for Hemiarthroplasty Hip. Chief Complaint: [] Interval history: The patient seen examined no acute overnight events slept well This am had PT done, and is tired from same not very hungry but plans to have breakfast family by bedside Pertinent ROS: Denies headache, dizziness Denies chest pain, palpitations Denies cough or shortness of breath Denies abdominal pain, nausea or vomiting. - Constitutional Vitals: Vital Signs Temp Pulse Resp BP Pulse Ox 99.4 F 84 18 121/58 95 06/23/16 08:00 06/23/16 08:00 06/23/16 08:00 06/23/16 08:00 06/23/16 08:00 Period Temp Pulse Resp BP Sys/Pascal Pulse Ox Last 24 Hr 98.0 F-99.4 F 75-99 16-20 91-142/52-83 91-98 Intake and Output 06/22/16 06/23/16 06/23/16 21:59 05:59 13:59 Intake Total 270 / 270 560 / 560 Output Total 1050 / 1050 600 / 600 Balance -780 / -780 -40 / -40 Weight 129 lb 8 oz Intake & Output: Intake & Output 06/22/16 06/23/16 06/23/16 21:59 05:59 13:59 Intake Total 270 / 270 560 / 560 Output Total 1050 / 1050 600 / 600 Balance -780 / -780 -40 / -40 Weight 129 lb 8 oz Intake: IV 150 / 150 200 / 200 Dextrose 5% in Water 50 50 / 50 ml @ 100 mls/hr IV DAILY [facility] with Rocephin 1 gm Rx #:[id number] Oral 120 / 120 360 / 360 Output: Urine Catheter Amount 675 / 675 600 / 600 Void Amount 375 / 375 Uretheral ([place]) 375 / 375 Other: Meal Dinner Percent of Meal Consumed 50% Exam: Constitutional; Afebrile, cooperative, alert, not in distress. Eyes- No icterus, Pupils equal, reactive, No periorbital swelling Ears- Ext ear normal, hearing hard to conversation. Neck- Midline trachea, supple Respiratory system: Air Entry equal on both sides, No crackles or wheezing, no rhonchi. CVS- Rate rhythm, irregular, S1,S2 heard, no gallop, no rub. 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 Medical - PN: Obj Da - Labs CBC & Chem 7: 06/23/16 04:00 06/23/16 04:00 Labs: Abnormal Lab Results 06/23/16 06/23/16 06/23/16 04:00 04:00 04:00 WBC 4.2 L RBC 2.35 L Hgb 9.2 L Hct 27.6 L MCV 117.7 H MCH 39.1 H RDW 24.5 H Lymph # 0.8 L PT 21.0 H INR 1.8 H Calcium 8.1 L Lactate Dehydrogenase 278 H Total Protein 5.2 L Albumin 3.1 L Globulin 2.1 L Triglycerides 151 H 06/22/16 06/21/16 06:18 08:26 WBC RBC Hgb Hct MCV MCH RDW Lymph # PT 20.3 H 25.9 H INR 1.7 H 2.3 H Calcium Lactate Dehydrogenase Total Protein Albumin Globulin Triglycerides Meds: Medications Albuterol/Ipratropium (Duoneb) 3 ml NEB Q6HRT PRN PRN Reason: Shortness Of Breath Or Wheezing Amlodipine Besylate (Norvasc) 10 mg PO DAILY [facility] Last Admin: 06/23/16 08:54 Dose: 10 mg Azathioprine (Imuran) 50 mg PO BID [facility] Last Admin: 06/23/16 08:54 Dose: 50 mg Azathioprine (Imuran) 150 mg PO DAILY@1200 [facility] Last Admin: 06/22/16 15:23 Dose: 150 mg Bisacodyl (Dulcolax) 10 mg ID Q2-3DAYS PRN PRN Reason: Constipation Docusate Sodium (Colace) 100 mg PO BID [facility] Last Admin: 06/23/16 08:52 Dose: 100 mg Folic Acid (Folic Acid) 1 mg PO DAILY [facility] Last Admin: 06/23/16 08:53 Dose: 1 mg Furosemide (Lasix) 20 mg PO DAILY [facility] Last Admin: 06/23/16 08:52 Dose: 20 mg Gabapentin (Neurontin) 300 mg PO TID [facility] Last Admin: 06/23/16 08:54 Dose: 300 mg Hydromorphone HCl (Dilaudid) 0.5 mg IV Q1HP PRN PRN Reason: Pain Last Admin: 06/23/16 07:52 Dose: 0.5 mg Ceftriaxone Sodium 1 gm/ (Dextrose) 50 mls @ 100 mls/hr IV DAILY [facility] Stop: 06/27/16 09:29 Last Admin: 06/23/16 08:47 Dose: 100 mls/hr Isosorbide Mononitrate (Imdur) 30 mg PO DAILY [facility] Last Admin: 06/23/16 08:52 Dose: 30 mg Ketorolac Tromethamine (Toradol) 15 mg IV Q6HP PRN PRN Reason: Pain Stop: 06/24/16 10:03 Magnesium Hydroxide (Milk Of Magnesia) 30 ml PO BIDP PRN PRN Reason: Constipation Metoprolol Tartrate (Lopressor) 25 mg PO BID [facility] Last Admin: 06/23/16 08:52 Dose: 25 mg Morphine Sulfate (Morphine) 0 mg IV Q1HP PRN PRN Reason: Pain Naloxone HCl (Narcan) 0.1 mg IV Q2MIN PRN PRN Reason: Opiate Reversal Nitroglycerin (Nitrostat) 0.4 mg SL Q5M PRN PRN Reason: Chest Pain Ondansetron HCl (Zofran) 4 mg IV Q6HP PRN PRN Reason: Nausea And Vomiting Oxycodone/Acetaminophen (Percocet 5-325 Mg) 0 tab PO Q4HP PRN PRN Reason: Pain Last Admin: 06/22/16 15:25 Dose: 2 tab Pantoprazole Sodium (Protonix) 40 mg PO BIDAC [facility] Last Admin: 06/23/16 07:36 Dose: 40 mg Polyethylene Glycol (Miralax) 17 gm PO DAILYP PRN PRN Reason: Constipation Potassium Chloride (Klor-Con) 40 meq PO DAILYP PRN PRN Reason: K+ < 3.5 [facility] Last Admin: 06/23/16 08:54 Dose: 10 mg Promethazine HCl (Phenergan) 12.5 mg IV Q6HP PRN PRN Reason: Nausea And Vomiting Senna (Senokot) 2 tab PO HS [facility] Last Admin: 06/22/16 21:07 Dose: 2 tab Sodium Biphosphate/Sodium Phosphate (Fleets Adult) 1 dose ID Q3-4DAYS PRN PRN Reason: Constipation Sodium Chloride (Saline Flush) 10 ml IV Q8 [facility] Last Admin: 06/23/16 10:14 Dose: 10 ml Sucralfate (Carafate) 1 gm PO 1HRACHS [facility] Last Admin: 06/23/16 07:35 Dose: 1 gm Throat Lozenges (Cepacol) 1 lozenge PO PRN PRN PRN Reason: Sore Throat Trazodone HCl (Desyrel) 50 mg PO [facility] Last Admin: 06/22/16 21:07 Dose: 50 mg Warfarin Sodium (Coumadin Per Pharmacy) 1 order PO [facility] Warfarin Sodium (Coumadin) 3 mg PO ONCE@1400 [facility] Stop: 06/23/16 14:01 Medical - PN: A/P - Time Spent With Patient Total time spent is greater than 50% in coordination of care (as documented) at patient's floor/unit and/or counseling patient: (1) Hypertension Status: Acute Current Visit: Yes (2) Fracture of left hip Status: Acute Current Visit: Yes (3) UTI (urinary tract infection) Status: Acute Current Visit: Yes (4) Hypoxia Status: Acute Current Visit: Yes (5) Atelectasis Status: Acute Current Visit: Yes - Narrative A/P Narrative: Patient is post op day 1 doing well Resume home medications PT as per Ortho On IV rocephin for UTI, sensitivities pending. Needs O2 at night, likely from atelectasis. Incentive spirometery. Dvt on coumadin INR 1.8 Myasthenia- On Azathioprine and Prednisone continue same. Dispo once ok from ortho Ok to xfer to Med surg/ floor status. Medical - PN: Qual - Stroke Symptom Onset Unknown: No - VTE Deep Vein Thrombosis/Pulmonary Embolism Present on Admission: No
[2016-06-23] MEDS ORDERED: CIPROFLOXACIN 400 MG/200 ML BAG IV SCH (13:00)
--- NOTE | 2016-06-23 13:00 | Orthopedic Progress Note ---
Subjective Patient information: Note initiated : 06/23/16 at 12:57 pm Service Date, if different from initiated Date: [] Patient: Juan Diego Luna 85 y/o F admitted on 06/21/16 for Hemiarthroplasty Hip. Chief Complaint: [] Principal diagnosis: s/p L hip hemiarthroplasty Interval history: sleeping comfortably Objective Vital signs: Vital Signs Temp Pulse Resp BP BP Pulse Ox 06/23/16 08:00 99.4 F 84 18 121/58 95 06/23/16 04:00 98.4 F 16 101/54 96 06/23/16 00:00 98.4 F 18 91/52 95 06/22/16 21:00 130/83 06/22/16 19:42 98.2 F 20 99/59 96 06/22/16 18:22 96 06/22/16 18:21 96 06/22/16 18:13 88 102/61 06/22/16 17:00 90 117/62 06/22/16 16:30 89 114/68 06/22/16 16:00 98.1 F 83 16 111/62 94 06/22/16 15:00 88 125/69 06/22/16 14:00 89 16 109/57 96 06/22/16 13:30 89 16 123/71 97 06/22/16 13:00 90 16 122/77 97 Intake and Output 06/22/16 06/23/16 06/23/16 21:59 05:59 13:59 Intake Total 270 / 270 560 / 560 Output Total 1050 / 1050 600 / 600 Balance -780 / -780 -40 / -40 Intake: IV 150 / 150 200 / 200 Dextrose 5% in Water 50 50 / 50 ml @ 100 mls/hr IV DAILY [facility] with Rocephin 1 gm Rx #:[id number] Oral 120 / 120 360 / 360 Output: Urine Catheter Amount 675 / 675 600 / 600 Void Amount 375 / 375 Uretheral ([place]) 375 / 375 Other: Meal Dinner Percent of Meal Consumed 50% Weight 129 lb 8 oz Intake & Output: Intake & Output 06/22/16 06/23/16 06/23/16 21:59 05:59 13:59 Intake Total 270 / 270 560 / 560 Output Total 1050 / 1050 600 / 600 Balance -780 / -780 -40 / -40 Weight 129 lb 8 oz Intake: IV 150 / 150 200 / 200 Dextrose 5% in Water 50 50 / 50 ml @ 100 mls/hr IV DAILY [facility] with Rocephin 1 gm Rx #:[id number] Oral 120 / 120 360 / 360 Output: Urine Catheter Amount 675 / 675 600 / 600 Void Amount 375 / 375 Uretheral ([place]) 375 / 375 Other: Meal Dinner Percent of Meal Consumed 50% Dressing: Yes dry, Yes intact Weight bearing status: as tolerated - Periperhal Pulses Peripheral pulses: 1+: posterior tibialis (L) - Diagnostic Results Shoulder x-ray: image reviewed (No fracture) - Labs CBC & BMP: 06/23/16 04:00 06/23/16 04:00 Labs: Orthopedic Labs 06/23/16 06/22/16 06/21/16 04:00 06:18 08:26 PT 21.0 H 20.3 H 25.9 H INR 1.8 H 1.7 H 2.3 H 06/23/16 04:00 Hgb 9.2 L Hct 27.6 L Assessment and Plan (1) Fracture of left hip POD#1 s/p L hip hemiarthroplasty-orthopedically stable -OK to transfer to med/surg from ortho standpoint -work on d/c planning -PT to mobilize as possible Status: Acute Qualifiers: Encounter type: initial encounter Fracture type: closed Qualified Code(s) : S72.002A - Fracture of unspecified part of neck of left femur, initial encounter for closed fracture
[2016-06-23] MEDS ORDERED: WARFARIN 3 MG TABLET PO ONE (14:00)
[2016-06-23] MEDS: oxyCODONE/APAP 5/325MG TABLET PO PRN (14:16)
[2016-06-23] MEDS ORDERED: FLEETS ADULT ENEMA PR PRN (14:43)
[2016-06-23] MEDS ORDERED: HYDROmorphone 2 MG/ML SYRINGE IV PRN (14:43)
[2016-06-23] MEDS ORDERED: ONDANSETRON 4 MG/2 ML VIAL IV PRN (14:43)
[2016-06-23] MEDS ORDERED: POLYETHYLENE GLYCOL 3350 17 GM PACKET PO PRN (14:43)
[2016-06-23] MEDS ORDERED: IPRATROPIUM/ALBUTEROL 3 ML AMPUL.NEB NEB PRN (14:43)
[2016-06-23] MEDS ORDERED: KETOROLAC 15 MG/ML VIAL IV PRN (14:43)
[2016-06-23] MEDS ORDERED: NITROGLYCERIN 0.4 MG TAB.SUBL SL PRN (14:43)
[2016-06-23] MEDS ORDERED: PROMETHAZINE 25 MG/ML VIAL IV PRN (14:43)
[2016-06-23] MEDS ORDERED: BENZOCAINE/MENTHOL 1 LOZENGE PO PRN (14:43)
[2016-06-23] MEDS ORDERED: MAGNESIUM HYDROXIDE 30 ML ORAL.SUSP PO PRN (14:43)
[2016-06-23] MEDS ORDERED: BISACODYL 10 MG SUPP.RECT PR PRN (14:43)
[2016-06-23] MEDS ORDERED: POTASSIUM CHLORIDE 20 MEQ PACKET PO PRN (14:43)
[2016-06-23] MEDS ORDERED: NALOXONE HCL 0.4 MG/ML VIAL IV PRN (14:43)
[2016-06-23] MEDS ORDERED: SENNOSIDES 1 TABLET PO SCH (21:00)
[2016-06-23] MEDS ORDERED: traZODone HCL 50 MG TABLET PO SCH (21:00)
[2016-06-24] MEDS: oxyCODONE/APAP 5/325MG TABLET PO PRN ×2 (02:11→07:23)
[2016-06-24] MEDS: 0.9 % SODIUM CHLORIDE 10 ML SYRINGE IV SCH (05:17)
[2016-06-24] MEDS: PANTOPRAZOLE 40 MG TABLET PO SCH (07:19)
[2016-06-24] MEDS: SUCRALFATE 1 GM TABLET PO SCH (07:19)
--- NOTE | 2016-06-24 07:44 | Consultation ---
DATE OF CONSULTATION: 06/22/2016 ORTHOPEDIC CONSULTATION DATE OF CONSULTATION: 06/22/2016 CHIEF COMPLAINT: Left hip pain. HISTORY: Ms. Luna is an 85-year-old female who reports that she was on the toilet seat on 06/21/2016 when, while trying to get up, her leg slipped or gave out and she fell down and felt immediate pain in her hip. The patient had prior been having pain in the left hip region which is worse with activity and better with rest. She was sent to [facility] emergency room where x-ray showed a femoral neck fracture in the left femoral neck region. She was admitted to the hospital for further management. The patient denies any trauma to the head, loss of consciousness, palpitations, presyncope or dizziness. The patient does have a history of atrial fibrillation, myasthenia gravis. After speaking with the daughter and the patient, they also report that she has a history of congestive heart failure and does take Coumadin for her atrial fibrillation. She denies any history of myocardial infarction, stroke, TIA, kidney disease or diabetes. She recently was in the process of moving to [facility] prior to the fall. She denies any chest pain, calf pain, shortness of breath, headaches, nausea, vomiting, abdominal pain. She does have left upper extremity pain. There are no other complaints today. REVIEW OF SYSTEMS: Ten point review of systems were negative except what was in the HPI. PAST MEDICAL HISTORY, PAST SURGICAL HISTORY: Positive for chronic urinary tract infections, congestive heart failure, lower GI bleed, and she has a history of total knee arthroplasty with cataract surgery, appendectomy, and cholecystectomy. CURRENT MEDICATIONS: Estradiol 0.5 mg daily. Folic acid 1 tablet daily. Prilosec 20 mg by mouth twice daily Imuran 50 mg by mouth twice daily Coumadin 2 mg by mouth on Friday, Friday, , Friday and 3 mg on Friday, Friday and Friday. ALLERGIES: HCTZ and MUSCLE RELAXERS. PHYSICAL EXAMINATION: VITAL SIGNS: Temperature 97.3, pulse 87, respiratory rate 18, blood pressure 112/64, pulse oximetry 95. GENERAL: An elderly female who appeared her stated age of 85. She is currently alert and oriented to person, place, time and event. She is in no current distress. HEAD: Atraumatic, normocephalic with normal inspection. EYES: PERRLA. Extraocular motions are intact. NECK: Supple, nontender, no lymphadenopathy present with trachea midline. LUNGS: Show clear auscultation in all leon bilaterally with normal respiratory exam. CARDIOVASCULAR: There is a regular rate and rhythm with a slight systolic murmur heard in the aortic region. ABDOMEN: Shows normal bowel sounds, soft and nontender. MUSCULOSKELETAL: Shows pain in the left groin region. She has a positive logroll. She is able to actively dorsiflex and plantarflex her foot. The foot is pink and warm. Neurovascularly intact throughout the lower extremity. There is no pedal edema present. NEUROLOGIC: She is alert. Cranial nerves 2-12 are grossly intact. No motor sensory deficit. ASSESSMENT: 85-year-old female with left femoral neck fracture. PLAN: The patient was on Coumadin for atrial fibrillation. Initially her INR was too elevated. Hospitalist has worked this down and she is now within a safe range to take her to surgery. I did talk with the patient and her daughter in full detail today. I explained the etiology of the pain and the best way to fix this which would be a left hip hemiarthroplasty. They would like to proceed with the surgical intervention. The plan will be for a left hip hemiarthroplasty. Risks and benefits were discussed in full detail included but not limited to the risk of anesthesia to heart and lungs, risk of , risk of infection, risk of blood clots, risk of pulmonary embolism. They would like to proceed with surgical intervention. After the surgery she will once again be started back on her Coumadin and followed by the hospitalist. She will need transfer to a care home facility. All questions and concerns were answered today. MRN:mishel Job ID: [id number] Doc ID: [id number] Anibal Pardo PA-C
[2016-06-24] MEDS ORDERED: POTASSIUM CHLORIDE 20 MEQ PACKET PO SCH (08:00)
[2016-06-24] MEDS ORDERED: predniSONE 10 MG TABLET PO SCH (08:00)
[2016-06-24] MEDS: GABAPENTIN 300 MG CAPSULE PO SCH (08:08)
[2016-06-24] MEDS: METOPROLOL TARTRATE 25 MG TABLET PO SCH (08:08)
[2016-06-24] MEDS: azaTHIOprine 50 MG TABLET PO SCH (08:09)
[2016-06-24] MEDS: DOCUSATE SODIUM 100 MG CAPSULE PO SCH (08:10)
[2016-06-24] MEDS ORDERED: ISOSORBIDE MONONITRATE 30 MG TAB.XL.24H PO SCH (09:00)
[2016-06-24] MEDS ORDERED: FOLIC ACID 1 MG TABLET PO SCH (09:00)
[2016-06-24] MEDS ORDERED: FUROSEMIDE 20 MG TABLET PO SCH (09:00)
[2016-06-24] MEDS ORDERED: CIPROFLOXACIN 400 MG/200 ML BAG IV SCH (09:00)
[2016-06-24] MEDS ORDERED: amLODIPine 10 MG TABLET PO SCH (09:00)
--- NOTE | 2016-06-24 09:24 | Operative Note ---
DATE OF OPERATION: 06/22/2016 PREOPERATIVE DIAGNOSIS: Left completely displaced femoral neck fracture. POSTOPERATIVE DIAGNOSIS: Left completely displaced femoral neck fracture. PROCEDURE PERFORMED: Open treatment of left displaced femoral neck fracture with prosthetic hemiarthroplasty using a DePuy Honor Basic cemented size 4 femoral stem, a 0 neck length with a 44 unipolar head. SURGEON: Jacques Johnson MD. WIRE ROPE SALES REPRESENTATIVE: Anibal Pardo PA-C. ANESTHESIA: General. DRAINS: None. SPECIMENS: None. BLOOD LOSS: 150 mL. COMPLICATIONS: None. POSTOPERATIVE CONDITION: Stable. 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 She was taken to the emergency department and found to have a displaced femoral neck fracture. She was unable to proceed surgically yesterday due to an elevated INR for which she is on Coumadin normally. FINDINGS AT SURGERY: As above. Post-fixation showed stable hip replacement with satisfactory stability. PROCEDURE IN DETAIL: The patient had been seen preoperatively and informed consent had been obtained after discussion of risks and benefits of surgery. Risks including, but not limited to, bleeding, possibly requiring transfusion; infection, possibly requiring implant removal and prolonged IV antibiotics; injury to nerves, blood vessels, and other surrounding structures; anesthetic risks; continued pain; dislocation; leg length discrepancy; DVT and pulmonary embolus risks; and the possibility of needing further surgery. She understood these risks and wished to proceed. Correct operative site was marked and then patient was taken to the operating room and general anesthesia induced. She was carefully positioned in the right lateral decubitus position and pressure points carefully padded. The left lower extremity and hip were carefully prepped and draped in normal sterile fashion. Timeout was performed verifying patient name, operative site, and plan. A standard posterior approach incision was made with a scalpel through skin and subcutaneous tissue and hemostasis obtained with Bovie cautery. Sharp dissection was continued down onto the iliotibial band and then a Madrigal elevator used to develop the plane. We then incised this with Bovie in line with our skin incision. A Charnley retractor was placed underneath the IT band. The leg was internally rotated and fat was swept off of the short external rotators and then these were detached off of the posterior femur. The capsule was identified, and then a T-shaped capsular incision was made and the fracture hematoma aspirated. We then used the oscillating saw to make our femoral neck freshening cut and then a corkscrew was placed in the femoral head which was dislocated. This was sized. It fit through a 45, but did not fit through a 44. We went ahead and exposed the acetabulum and removed the bone fragments and made sure it was clear of any debris. We then exposed the proximal femur, and we actually ended up freshening our neck cut a little more as the fracture was still extending past it. Once we had done this, we used the box osteotome and then a handheld canal-finding awl. A lateralizing rasp was used on power, and then we started reaming. She reamed up to a size 4. We broached up to a size 4 which seated just below our neck cut. We went ahead to calcar plane, and this did chip some bone off of the medial neck, so we have elected at this point to proceed with a cemented arthroplasty. We did trial with a standard. This seemed to have good leg length, tension and stability, so we went ahead and dislocated the femoral canal. It was irrigated with Irrisept and then after a minute we pulse lavaged with saline. A cement restrictor was placed. We used the femoral brush, followed by the suction while antibiotic cement was mixed. We cemented the size 4 Honor Basic fracture stem in place. Excess cement was removed. Once cement had fully hardened, we retrialed with a standard neck length, and this again with good stability and leg length without excessive tension, so we went ahead and opened a 44 head with a standard neck. The stem was cleaned and dried and then head was impacted. The hip was reduced. Stability reassessed again and was stable, so we went ahead and placed the leg on a Patel horseback riding instructor some abduction and then used Ethibond for our capsule repair, several [id number] stitches. We used some more Irrisept followed by pulse lavage and then #1 Vicryl used for running our IT band, one proximal and one distal. Final Irrisept irrigation done and then 2-0 Monocryl for subcutaneous and rosmery for skin. Xeroform and sterile dressing were applied. The leg was placed in an abductor pillow. The patient was then turned supine, awakened, extubated, and transferred to recovery in stable condition. BRAN:joe Job ID: [id number] Doc ID: [id number] Jacques Johnson MD
--- NOTE | 2016-06-24 11:48 | Discharge Summary ---
Medical - DS: Prov Patient information: Note initiated : 06/24/16 at 11:43 am Service Date, if different from initiated Date: [] Patient: Juan Diego Luna 85 y/o F admitted on 06/21/16 for Hemiarthroplasty Hip /Fracture of Left Hip. Chief Complaint: [] Date of admission: 06/21/16 02:54 Discharge date: 06/24/16 Primary care physician: [f_Reg Prim Care Provider] Attending physician on admission: Aniyah Loco Consults: 06/23/16 13:40 Consult to Physician [CONS] Routine Comment: Consulting Provider: [facility] Reason For Exam: Physician to Consult Discharging clinician: Aniyah Loco Medical - DS: Meds - Discharge Medications Prescriptions: Ciprofloxacin [Cipro] 250 mg PO BID #12 tablet Hydrocodone/APAP 7.5/325Mg [[place] 7.5/325Mg] 1 tab PO Q4HP PRN #60 tablet PRN Reason: Pain Warfarin Sodium [Jantoven] 2.5 mg PO DAILY #30 tablet Active and Home Medications: Home Medications Estradiol [Estrace] 0.5 mg PO DAILY 11/08/14 [History Confirmed 06/21/16 Last Taken 12/05/15 20:00] Omeprazole [Prilosec] 20 mg PO QAMAC 11/08/14 [History Confirmed 06/22/16 Last Taken 12/06/15 09:30] azaTHIOprine [Imuran] 50 mg PO BID 11/08/14 [History Confirmed 06/21/16 Last Taken 12/06/15 09:30] Acetaminophen [Tylenol] 650 mg PO Q4-6HP PRN #0 tablet 12/11/15 [Rx Confirmed Last Taken Unknown] Aspirin [Ecotrin] 325 mg PO DAILY tab.ec 12/11/15 [Rx Confirmed 06/21/16 Last Taken Unknown] Furosemide [Lasix] 20 mg PO DAILY tablet 12/11/15 [Rx Confirmed 06/21/16 Last Taken Unknown] Gabapentin [Neurontin] 300 mg PO TID capsule 12/11/15 [Rx Confirmed 06/21/16 Last Taken Unknown] Sennosides/Docusate Sodium [Senna Plus Tablet] 1 tab PO HS tablet 12/11/15 [Rx Confirmed 06/21/16 Last Taken Unknown] azaTHIOprine [Imuran] 150 mg PO DAILY@1200 tablet 12/11/15 [Rx Confirmed Last Taken Unknown] predniSONE [Prednisone] 10 mg PO QAMCC tablet 12/11/15 [Rx Confirmed 06/21/16 Last Taken Unknown] Warfarin [Coumadin] 2 mg PO SUTUTHSA@2100 03/15/16 [History Confirmed 06/22/16 Last Taken Unknown] Warfarin [Coumadin] 3 mg PO MOWEFR@2100 03/15/16 [History Confirmed 06/22/16 Last Taken Unknown] Folic Acid 1 mg PO DAILY 06/21/16 [History Confirmed 06/21/16 Last Taken Unknown ] Hydrocodone/APAP 7.5/325Mg [[place] 7.5/325Mg] 1 tab PO Q4HP PRN 06/21/16 [ History Confirmed 06/21/16 Last Taken Unknown] Isosorbide Mononitrate [Imdur] 30 mg PO DAILY 06/21/16 [History Confirmed Last Taken Unknown] Sucralfate [Carafate] 1 gm PO 1HRACHS 06/21/16 [History Confirmed 06/21/16 Last Taken Unknown] amLODIPine [Norvasc] 10 mg PO DAILY 06/21/16 [History Confirmed 06/21/16 Last Taken Unknown] traMADol [Ultram] 50 mg PO TIDP PRN 06/21/16 [History Confirmed 06/21/16 Last Taken Unknown] traZODone HCL [Desyrel] 50 mg PO HS 06/21/16 [History Confirmed 06/21/16 Last Taken Unknown] Multivit,Ther Iron,Ca,FA & Min [Multivitamin W/Minerals] 1 tab PO DAILY [History Confirmed 06/22/16 Last Taken Unknown] Potassium Chloride [Klor-Con] 20 meq PO QAMCC 06/22/16 [History Confirmed Last Taken Unknown] Medical - DS: Hosp Hospital course: Mr. Luna is a 85 year old female, who presented after a fall and left hip fracture Left hip fracture- Seen by Ortho, Dr Wilson, who performed left hemiarthroplasty. Patient did well post operatively with no complications and will follow up with ortho as per their protocol Afib/ the patietn has afib, and was discharged on metoprolol on last visit, this time however on med reconcilation the patient was not noted to be on metoprolol, it would seem it was discontined by her PCP. Presently not on any medication for rate control. Metoprol was used while inpatient during the periop period, however PCP to determine if the patient needs to be on any rate control meds. She is on coumadin and will be discharged on coumadin 2.5mg once daily. INR on discharge is 2.0 UTI- UA was positive for uti, initially treated with rocephin, but pt microbiology showed enterbacter cloacae, resistant to cephalosporin/ rocephin. Sensitive to cipro. Will take medication for total of 7 days. patient had some post op atelectasis, for which she needs to continue on incentive spirometer. The rest of patients medical conditions remained stable. no changes to home medication except coumadin. She will be d/c to snf for ongoing PT Discharge diagnosis: Hip fracture - Time Spent with Patient Total time spent providing and/or coordinating discharge services: Less than 30 minutes Medical - DS: Exam - Constitutional Vitals: Vital Signs Temp Pulse Pulse Resp BP Pulse Ox 06/24/16 08:00 99.9 F H 80 18 106/67 92 06/24/16 07:30 92 06/24/16 07:29 83 12 92 06/24/16 03:35 99.3 F 80 20 93/51 92 06/23/16 23:30 98.2 F 63 20 107/64 93 06/23/16 21:10 97.7 F 79 20 120/57 96 06/23/16 20:28 94 06/23/16 20:27 94 Intake and Output 06/23/16 06/24/16 06/24/16 21:59 05:59 13:59 Intake Total 360 / 360 Output Total 700 / 700 Balance -340 / -340 Intake: Oral 360 / 360 Output: Urine Catheter Amount 700 / 700 Other: Weight 128 lb 8 oz Additional comments: Constitutional; Afebrile, cooperative, alert, not in distress. Eyes- No icterus, Pupils equal, reactive, No periorbital swelling Ears- Ext ear normal, hearing hard to conversation. Neck- Midline trachea, supple Respiratory system: Air Entry equal on both sides, No crackles or wheezing, no rhonchi. CVS- Rate normal, rhythm irregular S1,S2 heard, no gallop, no rub. Abdomen- Soft nontender abdomen, no organomegaly, no tenderness, no guarding or rigidity, DIVER HELPER- AOOx3, moving all extremities, no focal deficit noted. Medical - DS: Data Procedures and tests throughout hospitalization: Left hip x ray- Fracture of left neck femur CXR- leidy discoid atelectasis Echo- normal lvef, mild lvh, mild as, heavy mitral valve calcification. Shoulder x dorian left - mild arthritis. Labs on day of discharge: Labs from last 24 hours 06/24/16 05:55 PT 23.7 H INR 2.0 H Medical - DS: A/P - Patient/Caregiver Discharge Instructions Activity: as per physical therapy, increase activity as tolerated Diet: Cardiac Additional Instructions: Discharge Instructions: Call and schedule a follow up appointment with Dr Johnson for 10-14 days for staple removal. Do the exercises at home that physical therapy gave you. Take your prescription, photo ID, insurance cards, and current medication list with you to your first physical therapy appointment. Take your prescription to picker and packer any medication or equipment (such as walker, crutches, toilet riser or C.P.M.) Wear comfortable clothing for your physical therapy. Weight bearing as tolerated. You have the Aquacel Ag dressing, leave in place for 7 days then remove. If dressing becomes soiled (turns black), remove and use gauze 4x4 dressing and silvasorb ointment and change daily. Keep incision clean and dry. To avoid constipation while taking any narcotic pain medication, take an over the counter stool softener/laxative. You may use ice packs as needed for 20 minutes at a time throughout the day. This and elevation will help with pain and swelling. Call your physician for fevers above 100.5 or pain not controlled by medication. Do Incentive Spirometer 3-5 times per hour for next couple of days Check INR in 3 days Follow up with PCP in 7-10 days. - Problem Maintenance (1) Hypertension Status: Acute (2) Fracture of left hip Status: Acute Qualifiers: Encounter type: initial encounter Fracture type: closed Qualified Code(s) : S72.002A - Fracture of unspecified part of neck of left femur, initial encounter for closed fracture (3) UTI (urinary tract infection) Status: Acute (4) Hypoxia Status: Acute (5) Atelectasis Status: Acute - Follow up Plan Follow up with: Jacques Johnson MD [Physician] - Carlos Thompson MD [Primary Care Provider] - Disposition: Xfer SNF Prognosis: Fair Rehab Potential: Fair I certify that the patient requires SNF services: Yes Overall status at discharge: patient is progressing back to baseline Medical - DS: Qual - VTE Deep Vein Thrombosis/Pulmonary Embolism Present on Admission: No
[2016-06-24] MEDS ORDERED: azaTHIOprine 50 MG TABLET PO SCH (12:00)
[2016-06-24] MEDS ORDERED: WARFARIN 3 MG TABLET PO ONE (14:00)
== END 2016-06-24 13:20 | DRG 470 ==
LOC: ED 00:13 → MEDSUR 02:54 → ICU 06-22 12:10 → MEDSUR 06-23 16:38
PROVIDERS: ADMIT Internal Medicine; ATTEND Internal Medicine
PROC: HEMIHIP (2016-06-22 08:26)